=== PATIENT | male | born 1975 ===

== ENCOUNTER 2023-03-21 02:38 | Outpatient (CLI) | payer OTHER, SELFPAY ==
--- NOTE | 2023-03-21 | DI.MRI_ITS ---
Exam(s) MR UPPER EXTREMITY LT WO EXAM: MR UPPER EXTREMITY LT WO CLINICAL HISTORY: SPRAIN CARPOMETACARPAL JOINT LT HAND,S63.82XA,MIDDLE FINGER PAIN, TECHNIQUE: Multiplanar multisequence MRI was performed. COMPARISON: No plain films of the hand available at the time of this MRI interpretation. FINDINGS: MARROW/ARTICULATIONS:There is mild bone contusion signal evident in the head of the 3rd metacarpal. No abnormal signal more proximally in this bone nor in the adjacent proximal phalanx of the 3rd finge r. There is no prominent joint effusion at the MCP joint and there are no erosions. LIGAMENTS: There is mild irregularity in the medial collateral ligament of this joint but no high-gra de tear. MUSCLES/TENDONS: There is no evidence of abnormal signal nor mass in the visualized muscles.No did te ars nor tenosynovitis EXTRAMUSCULAR SOFT TISSUES: No abnormal signal, mass, or fluid collection. Carpal tunnel unremarkabl e. OTHER: Small benign cysts noted in the lunate. No other bone cysts in the carpal row bones. Scaphoi d appears unremarkable. IMPRESSION: 1. There is mild bone contusion signal evident in the head of the 3rd metacarpal. No fractures. No erosions. No prominent joint effusion in the metacarpophalangeal joint at this level nor elsewhere i n the hand. No para-articular ganglion cyst. 2. No tendon tears nor tenosynovitis. 3. No significant collateral ligament tears DATA REPOSITORY:
== END 2023-03-21 02:58 ==
LOC: DI 02:39
PROVIDERS: Visit Provider Physician Assistant
DX: S63.8X2A Sprain of other part of left wrist and hand, initial encounter (principal); X58.XXXA Exposure to other specified factors, initial encounter
CPT/HCPCS: 73218